=== PATIENT | male | born 1985 | race Hispanic/Latino ===

== ENCOUNTER 2024-08-27 07:57 | Day surgery (SDC) | payer OTHER ==
[2024-08-27] VITALS (9 sets, daily range): BP systolic 152–189; BP diastolic 57–89; PULSE 71–84; RESP 15–18; TEMP 97.1–207.5
[~2024-08-27] VITALS: Ht 170.2 cm; Wt 70.8 kg
[2024-08-27] MEDS: 0.9% NACL 500ML IV.SOLN 500 ML IV ONE (10:20)
[2024-08-27] MEDS ORDERED: ATOR10 PO (10:23)
[2024-08-27] MEDS ORDERED: LEVO75CA5 PO (10:23)
[2024-08-27] MEDS ORDERED: SEVELAMER PO (10:23)
[2024-08-27] MEDS ORDERED: HUMLIS7525 SQ (10:23)
[2024-08-27] MEDS ORDERED: OMEP-420 PO (10:23)
[2024-08-27] MEDS ORDERED: NIFE-40 PO (10:23)
[2024-08-27] MEDS ORDERED: HYDR-3422 PO (10:23)
[2024-08-27] MEDS ORDERED: DOCU100C33 PO (10:23)
[2024-08-27] MEDS ORDERED: DEGLUDEC SQ (10:23)
[2024-08-27] MEDS ORDERED: ALPR-410 PO (10:23)
[2024-08-27] MEDS: INSULIN humuLIN R 100 UNIT/ML 3ML ONE (10:31)
[2024-08-27] MEDS: INSULIN humuLIN R 100 UNIT/ML 3ML IV ONE (10:31)
[2024-08-27] MEDS ORDERED: LIDOCAINE HCL 1% 20 ML VIAL ONE (11:39)
[2024-08-27] MEDS ORDERED: proPOFol 10 MG/ML 20ML VIAL IV ONE (11:39)
== END 2024-08-27 13:06 | disposition home or self-care (01) ==
LOC: ENDO 07:57 → DAH 07:57 → ENDO 13:06
PROVIDERS: ATTEND Internal Medicine Gastroenterology
DX: R19.4 Change in bowel habit (principal); I12.0 Hypertensive chronic kidney disease with stage 5 chronic kidney disease or end stage renal disease; E10.22 Type 1 diabetes mellitus with diabetic chronic kidney disease; E03.9 Hypothyroidism, unspecified; N18.6 End stage renal disease; F41.9 Anxiety disorder, unspecified; F43.10 Post-traumatic stress disorder, unspecified; Z86.73 Personal history of transient ischemic attack (TIA), and cerebral infarction without residual deficits; Z79.899 Other long term (current) drug therapy; Z53.8 Procedure and treatment not carried out for other reasons
CPT/HCPCS: 82948 ×3; 45378; J7040; J2704; J1815; A4620; A4215; A4223; A7002; A4222; A4221; A4663; J7030; A4606; J3490